=== PATIENT | male | born 1980 | race Caucasian/White ===

== ENCOUNTER 2018-04-08 14:45 | Emergency (ER) | payer MEDICAID ==
[~2018-04-08] VITALS: Ht 172.7 cm; Wt 115.7 kg
[2018-04-08 14:54] VITALS: Ht 172.7 cm; Wt 115.7 kg
[2018-04-08 17:42] VITALS: BP 122/79
== END 2018-04-08 17:42 | disposition home or self-care (01) ==
LOC: ED 14:45
DX: J40 Bronchitis, not specified as acute or chronic (principal)
CPT/HCPCS: 87804